=== PATIENT | male | born 1980 | race American Indian/Alaskan Native ===

== ENCOUNTER 2018-02-20 17:29 | Emergency (ER) | payer SELFPAY ==
[2018-02-20 17:47] VITALS: BP 163/99
--- NOTE | 2018-02-20 19:53 | XRay Report ---
FINAL REPORT PROCEDURE: XR KNEE 3V LT TECHNIQUE: Left knee, three views HISTORY: Fall, pain COMPARISON: No prior studies are available for comparison. FINDINGS: There is a large joint effusion. No acute fracture or dislocation. No focal osseous lesions. IMPRESSION: Large joint effusion. No fracture or dislocation is seen
--- NOTE | 2018-02-20 21:59 | Emergency Department Report ---
ED Lower Extremity HPI - General Chief Complaint: Extremity Injury, Lower Stated Complaint: FALL/LEFT KNEE PAIN Source: patient Mode of arrival: Ambulatory Limitations: No Limitations - History of Present Illness Initial Comments: This is a 37-year-old -[place]ub[place] male who presents with left knee pain early yesterday. Patient states he fell last week felt okay until yesterday. There is increase in pain to the medial left knee. Patient reports pain is worse with weight bearing. There is swelling. Patient reports pain is 10 out of 10 on pain scale. He denies loss of consciousness, nausea or vomiting, diaphoresis, numbness or tingling, fever, paresthesias, weakness, or obvious deformity. MD Complaint: knee injury (left knee) Onset/Timin -: days(s) Injury: Knee: Left Type of Injury: unknown Place: street/outdoors Severity: severe Severity scale (0 -10): 10 Improves With: nothing Worsens With: weight bearing, palpation Context: fall Associated Symptoms: swelling, able to partially bear weight, ambulatory. denies: snap/pop sensation, numbness, tingling, unable to bear weight - Related Data Previous Rx's Medication Instructions Recorded Last Taken Type Sulfamethoxazole/Trimethoprim 1 each PO Q12H #14 tablet 06/28/14 Unknown Rx [Bactrim Ds] traMADol [Ultram 50 MG tab] 50 mg PO Q6HR PRN #16 tablet 06/28/14 Unknown Rx Naproxen [Naprosyn] 500 mg PO TID #12 tablet 02/20/18 Unknown Rx traMADol [Ultram 50 MG tab] 50 mg PO Q6HR PRN #12 tablet 02/20/18 Unknown Rx Allergies Allergy/AdvReac Type Severity Reaction Status Date / Time No Known Allergies Allergy Verified 06/28/14 21:19 ED Review of Systems ROS: Stated complaint: FALL/LEFT KNEE PAIN Other details as noted in HPI Constitutional: denies: chills, fever Respiratory: denies: cough, shortness of breath, wheezing Cardiovascular: denies: chest pain, palpitations Gastrointestinal: denies: abdominal pain, nausea, diarrhea Musculoskeletal: arthralgia (left knee pain). denies: back pain, joint swelling Skin: denies: rash, lesions Neurological: denies: headache, weakness, paresthesias Psychiatric: denies: anxiety, depression ED Past Medical Hx - Past Medical History Previous Medical History?: Yes Hx Diabetes: Yes Additional medical history: gout - Surgical History Past Surgical History?: No - Social History Smoking Status: Never Smoker Substance Use Type: None - Medications Home Medications: Home Medications Medication Instructions Recorded Confirmed Last Taken Type Sulfamethoxazole/Trimethoprim 1 each PO Q12H #14 tablet 06/28/14 Unknown Rx [Bactrim Ds] traMADol [Ultram 50 MG tab] 50 mg PO Q6HR PRN #16 tablet 06/28/14 Unknown Rx Naproxen [Naprosyn] 500 mg PO TID #12 tablet 02/20/18 Unknown Rx traMADol [Ultram 50 MG tab] 50 mg PO Q6HR PRN #12 tablet 02/20/18 Unknown Rx ED Physical Exam - General Limitations: No Limitations General appearance: alert, in no apparent distress, obese (morbidly obese) - Respiratory Respiratory exam: Present: normal lung sounds bilaterally. Absent: respiratory distress - Cardiovascular Cardiovascular Exam: Present: regular rate, normal rhythm. Absent: systolic murmur, diastolic murmur, rubs, gallop - GI/Abdominal GI/Abdominal exam: Present: soft, normal bowel sounds - Expanded Lower Extremity Exam Left Hip exam: Present: normal inspection, full ROM Upper Leg exam: Present: normal inspection, full ROM Knee exam: Present: full ROM (painful range of motion), tenderness (tenderness and swelling to the lateral patella), swelling, full knee extension. Absent: abrasion, laceration, ecchymosis, deformity, crepidus, dislocation, erythema, posterior draw sign Lower Leg exam: Present: normal inspection, full ROM Ankle exam: Present: normal inspection, full ROM Foot/Toe exam: Present: normal inspection, full ROM Neuro vascular tendon exam: Present: no vascular compromise Gait: Positive: observed and limited by pain - Neurological Exam Neurological exam: Present: alert, oriented X3 - Psychiatric Psychiatric exam: Present: normal affect, normal mood - Skin Skin exam: Present: warm, dry, intact, normal color. Absent: rash ED Course Vital Signs 02/20/18 17:45 Temperature 98.8 F Pulse Rate 98 H Respiratory 18 Rate Blood Pressure 163/99 O2 Sat by Pulse 97 Oximetry ED Lower Extremity MDM - Radiology Data Radiology results: report reviewed Large joint effusion. No fracture or dislocation seen. - Medical Decision Making Patient was examined by me. Vitals are normal and patient is in no acute distress. Obtained a x-ray of left knee. X-ray dictated by radiologist report reviewed by myself. Large joint effusion. No fracture or dislocation seen. Patient informed of results. Start naproxen and tramadol for pain. A knee immobilizer applied to the left knee. RICE therapy, Nonweightbearing, and crutches with education. Referral to orthopedics for follow-up. Plan discussed with patient to discharge home and treat outpatient. He agrees with ER plan. Patient discharged home in stable condition. Follow up with PCP in 2-3 days. Critical care attestation.: If time is entered above; I have spent that time in minutes in the direct care of this critically ill patient, excluding procedure time. ED Disposition Clinical Impression: Knee effusion, left Left knee pain Qualifiers: Chronicity: acute Qualified Code(s): M25.562 - Pain in left knee Left knee injury Qualifiers: Encounter type: initial encounter Qualified Code(s): S89.92XA - Unspecified injury of left lower leg, initial encounter Disposition: TO HOME OR SELFCARE Is pt being admited?: No Does the pt Need Aspirin: No Condition: Stable Instructions: Knee Effusion (ED), Arthralgia (ED), RICE Therapy (ED) Additional Instructions: Rest Use ice or heat on affected area for 20 minutes and off for 2 hours. Take pain medication as needed for pain. Follow up with Primary Care Provider in 2-3 days. Prescriptions: Naproxen [Naprosyn] 500 mg PO TID #12 tablet traMADol [Ultram 50 MG tab] 50 mg PO Q6HR PRN #12 tablet PRN Reason: Pain Referrals: [facility] [Outside] - 3-5 Days BHAVYA COLLINS MD [Staff Physician] - 3-5 Days [facility] [Outside] - 3-5 Days Forms: Work/School Release Form(ED) Time of Disposition: 22:09
[2018-02-20] MEDS ORDERED: IBUPROFEN PO ONE (22:10)
== END 2018-02-20 22:36 | disposition home or self-care (01) ==
LOC: ED 17:29
DX: S89.92XA Unspecified injury of left lower leg, initial encounter (principal); M25.462 Effusion, left knee; E11.9 Type 2 diabetes mellitus without complications; W19.XXXA Unspecified fall, initial encounter; Y93.89 Activity, other specified; Y92.410 Unspecified street and highway as the place of occurrence of the external cause; Y99.8 Other external cause status

== ENCOUNTER 2018-04-15 19:14 | Emergency (ER) | payer OTHER ==
[2018-04-15 19:27] VITALS: BP 153/98
--- NOTE | 2018-04-15 19:38 | Emergency Department Report ---
Chief Complaint: Extremity Injury, Lower Stated Complaint: RT BIG TOE SWOLLEN Time Seen by Provider: 04/15/18 19:33 - HPI History of Present Illness: Pt states he was at work tonight and stubbed his right foot against a large palette He states bearing weight increases his pain but has been ambulatory never injured previously TTP of the right MTP joint laterally MSE complete - Exam Vital Signs: Vital Signs 04/15/18 19:26 Temperature 98.4 F Pulse Rate 112 H Respiratory 18 Rate Blood Pressure 153/98 O2 Sat by Pulse 97 Oximetry MSE screening note: Focused history and physical exam performed. Due to findings the following was ordered: xr right foot ED Disposition for MSE Condition: Stable
--- NOTE | 2018-04-15 21:57 | XRay Report ---
PROCEDURE: RIGHT FOOT, 2 VIEWS TECHNIQUE: RIGHT foot radiographs, AP and lateral views. CPT 82543 HISTORY: Trauma COMPARISONS: None . FINDINGS: Fracture (s) and/or Dislocation(s): None . Alignment: Normal . Joint space(s): Normal . Soft tissues: There is soft tissue swelling of the forefoot and first digit. . Bone mineralization: Normal . Foreign bodies: None . Calcaneal spurring: None . IMPRESSION: There is no fracture or malalignment. There is soft tissue swelling of the forefoot and first digit. . This document is electronically signed by Jesse García MD., April 15 2018 09:54:45 PM ET
--- NOTE | 2018-04-15 22:32 | Emergency Department Report ---
ED Lower Extremity HPI - General Chief Complaint: Extremity Injury, Lower Stated Complaint: RT BIG TOE SWOLLEN Time Seen by Provider: 04/15/18 19:33 Source: patient Mode of arrival: Ambulatory Limitations: No Limitations - History of Present Illness Initial Comments: 37-year-old -Tajik male presents emergency department complaining of continued pain to his right hallux following a work-related injury 3 days ago. While at work. He said he hit his toe with a hard object, which he noticed some pain and swelling which has continued to to linger and a non-progressing fashion. Pain is worse with palpation and ambulation. Reports no numbness or tingling. No reinjury no worsening injury. MD Complaint: foot injury -: Gradual Injury: Toes: Left Type of Injury: blunt Place: home Severity: mild Improves With: nothing Worsens With: nothing Context: direct blow Associated Symptoms: swelling, able to partially bear weight - Related Data Previous Rx's Medication Instructions Recorded Last Taken Type Sulfamethoxazole/Trimethoprim 1 each PO Q12H #14 tablet 06/28/14 Unknown Rx [Bactrim Ds] traMADol [Ultram 50 MG tab] 50 mg PO Q6HR PRN #16 tablet 06/28/14 Unknown Rx Naproxen [Naprosyn] 500 mg PO TID #12 tablet 02/20/18 Unknown Rx traMADol [Ultram 50 MG tab] 50 mg PO Q6HR PRN #12 tablet 02/20/18 Unknown Rx Ketorolac [Toradol] 10 mg PO Q6H PRN #14 tablet 04/15/18 Unknown Rx Allergies Allergy/AdvReac Type Severity Reaction Status Date / Time No Known Allergies Allergy Verified 06/28/14 21:19 ED Review of Systems ROS: Stated complaint: RT BIG TOE SWOLLEN Other details as noted in HPI Constitutional: denies: chills, fever Eyes: denies: eye pain, eye discharge, vision change ENT: denies: ear pain, throat pain Respiratory: denies: cough, shortness of breath, wheezing Cardiovascular: denies: chest pain, palpitations Endocrine: no symptoms reported Gastrointestinal: denies: abdominal pain, nausea, diarrhea Genitourinary: denies: urgency, dysuria Musculoskeletal: denies: back pain, joint swelling, arthralgia Skin: denies: rash, lesions Neurological: denies: headache, weakness, paresthesias Psychiatric: denies: anxiety, depression Hematological/Lymphatic: denies: easy bleeding, easy bruising ED Past Medical Hx - Past Medical History Previous Medical History?: Yes Hx Diabetes: Yes Additional medical history: gout - Surgical History Past Surgical History?: No - Social History Smoking Status: Never Smoker Substance Use Type: Alcohol - Medications Home Medications: Home Medications Medication Instructions Recorded Confirmed Last Taken Type Sulfamethoxazole/Trimethoprim 1 each PO Q12H #14 tablet 06/28/14 Unknown Rx [Bactrim Ds] traMADol [Ultram 50 MG tab] 50 mg PO Q6HR PRN #16 tablet 06/28/14 Unknown Rx Naproxen [Naprosyn] 500 mg PO TID #12 tablet 02/20/18 Unknown Rx traMADol [Ultram 50 MG tab] 50 mg PO Q6HR PRN #12 tablet 02/20/18 Unknown Rx Ketorolac [Toradol] 10 mg PO Q6H PRN #14 tablet 04/15/18 Unknown Rx ED Physical Exam - General Limitations: No Limitations General appearance: alert, in no apparent distress - Head Head exam: Present: atraumatic, normocephalic - Eye Eye exam: Present: normal appearance, PERRL, EOMI Pupils: Present: normal accommodation - ENT ENT exam: Present: normal exam, mucous membranes moist - Neck Neck exam: Present: normal inspection - Respiratory Respiratory exam: Present: normal lung sounds bilaterally. Absent: respiratory distress - Cardiovascular Cardiovascular Exam: Present: regular rate, normal rhythm. Absent: systolic murmur, diastolic murmur, rubs, gallop - GI/Abdominal GI/Abdominal exam: Present: soft, normal bowel sounds - Rectal Rectal exam: Present: deferred - Extremities Exam Extremities exam: Present: normal inspection - Expanded Lower Extremity Exam Right Foot/Toe exam: Present: tenderness, swelling. Absent: ecchymosis, erythema, foreign body, calcaneal tenderness, tenderness at base of 5th metatarsal Gait: Positive: observed and limited by pain 1 - Some swelling with mild mild redness, pain, worse with palpation. Pulses are 2+ capillary refills of [place] is is thickened. There are 2+ posterior dorsalis pedis and posterior posterior tibialis Wilcox's test is negative and drawer test is negative. - Back Exam Back exam: Present: normal inspection - Neurological Exam Neurological exam: Present: alert, oriented X3 - Psychiatric Psychiatric exam: Present: normal affect, normal mood - Skin Skin exam: Present: warm, dry, intact, normal color. Absent: rash ED Course Vital Signs 04/15/18 19:26 Temperature 98.4 F Pulse Rate 112 H Respiratory 18 Rate Blood Pressure 153/98 O2 Sat by Pulse 97 Oximetry ED Lower Extremity MDM - Radiology Data Radiology results: report reviewed (x-ray report read by the radiologist shows no acute processes, no fractures.) Critical care attestation.: If time is entered above; I have spent that time in minutes in the direct care of this critically ill patient, excluding procedure time. ED Disposition Clinical Impression: Contusion of toe of right foot Disposition: DC-01 TO HOME OR SELFCARE Is pt being admited?: No Does the pt Need Aspirin: No Condition: Stable Instructions: Foot Contusion (ED), Contusion in Adults (ED), Ice Pack Applica tion (ED) Prescriptions: Ketorolac [Toradol] 10 mg PO Q6H PRN #14 tablet PRN Reason: Pain Referrals: PRIMARY CARE, [Primary Care Provider] - 3-5 Days [facility] [Provider Group] - 3-5 Days
== END 2018-04-15 22:40 | disposition home or self-care (01) ==
LOC: ED 19:14
DX: S90.121A Contusion of right lesser toe(s) without damage to nail, initial encounter (principal); E11.9 Type 2 diabetes mellitus without complications; X58.XXXA Exposure to other specified factors, initial encounter; Y93.89 Activity, other specified; Y92.89 Other specified places as the place of occurrence of the external cause; Y99.8 Other external cause status

== ENCOUNTER 2018-04-22 17:40 | Emergency (ER) | payer OTHER ==
[2018-04-22 18:11] VITALS: BP 146/97
--- NOTE | 2018-04-22 18:13 | Emergency Department Report ---
Blank Doc - Documentation Documentation: This is a 37-year-old male that presents with right great toe pain and swelling. Stated had injury last week and had xray done as well here. Denies any new injures. Stated symptoms are of pain and swelling is getting worse. This initial assessment/diagnostic orders/clinical plan/treatment(s) is/are subject to change based on patient's health status, clinical progression and re- assessment by fellow clinical providers in the ED. Further treatment and workup at subsequent clinical providers discretion. Patient/guardians urged not to elope from the ED as their condition may be serious if not clinically assessed and managed. Initial orders include: 1- Patient sent to [facility] for further evaluation and treatment
[2018-04-22] MEDS ORDERED: IBUPROFEN PO ONE (20:18)
--- NOTE | 2018-04-22 20:46 | Emergency Department Report ---
ED Extremity Problem HPI - General Chief complaint: Extremity Injury, Lower Stated complaint: (R) BIG TOE PAIN Time Seen by Provider: 04/22/18 18:10 Source: patient Mode of arrival: Ambulatory Limitations: No Limitations - History of Present Illness Initial comments: 37-year-old -[place]gian male presents to the emergency room complaining of swelling to the right big toe times one week. Patient was seen here on 04/15/2018 for the same problem. Patient states that he keeps hitting his toe on door was intubated. Patient states that the history of gout and diabetes. Patient reports he is taking nothing for pain. Patient had x-rays done on 04/15/2018 with normal examination. Patient was discharged home on Toradol 10 mg every 6 hours with when necessary 14 tablets. -: week(s) (1) Location: right, toe (right toe) History of Same: Yes -: Yes arthralgia Radiation: proximal Severity scale (0 -10): 4 Quality: aching Consistency: intermittent Improves with: nothing Worsens with: palpation - Related Data Previous Rx's Medication Instructions Recorded Last Taken Type Sulfamethoxazole/Trimethoprim 1 each PO Q12H #14 tablet 06/28/14 Unknown Rx [Bactrim Ds] traMADol [Ultram 50 MG tab] 50 mg PO Q6HR PRN #16 tablet 06/28/14 Unknown Rx Naproxen [Naprosyn] 500 mg PO TID #12 tablet 02/20/18 Unknown Rx traMADol [Ultram 50 MG tab] 50 mg PO Q6HR PRN #12 tablet 02/20/18 Unknown Rx Ketorolac [Toradol] 10 mg PO Q6H PRN #14 tablet 04/15/18 Unknown Rx Allergies Allergy/AdvReac Type Severity Reaction Status Date / Time No Known Allergies Allergy Verified 06/28/14 21:19 ED Review of Systems ROS: Stated complaint: (R) BIG TOE PAIN Other details as noted in HPI Comment: All other systems reviewed and negative Musculoskeletal: arthralgia (right great toe) ED Past Medical Hx - Past Medical History Previous Medical History?: Yes Hx Diabetes: Yes Additional medical history: gout - Surgical History Past Surgical History?: No - Social History Smoking Status: Current Some Day Smoker Substance Use Type: None - Medications Home Medications: Home Medications Medication Instructions Recorded Confirmed Last Taken Type Sulfamethoxazole/Trimethoprim 1 each PO Q12H #14 tablet 06/28/14 Unknown Rx [Bactrim Ds] traMADol [Ultram 50 MG tab] 50 mg PO Q6HR PRN #16 tablet 06/28/14 Unknown Rx Naproxen [Naprosyn] 500 mg PO TID #12 tablet 02/20/18 Unknown Rx traMADol [Ultram 50 MG tab] 50 mg PO Q6HR PRN #12 tablet 02/20/18 Unknown Rx Ketorolac [Toradol] 10 mg PO Q6H PRN #14 tablet 04/15/18 Unknown Rx ED Physical Exam - General Limitations: No Limitations General appearance: alert, in no apparent distress - Head Head exam: Present: atraumatic, normocephalic - Eye Eye exam: Present: EOMI - ENT ENT exam: Present: mucous membranes moist - Respiratory Respiratory exam: Present: normal lung sounds bilaterally. Absent: respiratory distress - Cardiovascular Cardiovascular Exam: Present: regular rate, normal rhythm. Absent: systolic mur mur, diastolic murmur, rubs, gallop - Expanded Lower Extremity Exam Right Foot/Toe exam: Present: full ROM, tenderness. Absent: swelling, abrasion, ecchymosis, deformity, dislocation, erythema, nail avulsion Neuro vascular tendon exam: Present: no vascular compromise - Back Exam Back exam: Present: normal inspection - Neurological Exam Neurological exam: Present: alert, oriented X3 - Psychiatric Psychiatric exam: Present: normal affect, normal mood - Skin Skin exam: Present: warm, dry, intact, normal color. Absent: rash ED Course Vital Signs 04/22/18 18:08 Temperature 98.4 F Pulse Rate 89 Respiratory 18 Rate Blood Pressure 146/97 O2 Sat by Pulse 96 Oximetry ED Medical Decision Making - Medical Decision Making Patient is to take medication that was given to him on 04/15/2018 for pain management. Instructed patient to stop hitting his toe. Discussed the patient I am not really X free and his foot as there is no swelling no redness for range of motion. Patient is to follow-up with his primary care provider or ort hopedic. Critical care attestation.: If time is entered above; I have spent that time in minutes in the direct care of this critically ill patient, excluding procedure time. ED Disposition Clinical Impression: Contusion of toe of right foot Qualifiers: Encounter type: sequela Toe: great toe Damage to nail status: without damage Qualified Code(s): S90.111S - Contusion of right great toe without damage to nail, sequela Disposition: DC-01 TO HOME OR SELFCARE Is pt being admited?: No Does the pt Need Aspirin: No Condition: Stable Instructions: Arthralgia (ED) Additional Instructions: Please take pain medication that was prescribed to you 04/15/2018. As you stated he did not take anything for pain. Follow-up with orthopedic provider for your primary care provider. Referrals: ARLEY PATEL MD [Primary Care Provider] - 3-5 Days BHAVYA COLLINS MD [Staff Physician] - 3-5 Days Forms: Work/School Release Form(ED)
== END 2018-04-22 20:55 | disposition home or self-care (01) ==
LOC: ED 17:40
DX: S90 Superficial injury of ankle, foot and toes (principal); E11.9 Type 2 diabetes mellitus without complications; M10.9 Gout, unspecified; F17.200 Nicotine dependence, unspecified, uncomplicated; X58.XXXS Exposure to other specified factors, sequela
CPT/HCPCS: 99282